=== PATIENT | female | born 1980 | race Caucasian/White ===

== ENCOUNTER 2018-11-28 23:04 | Emergency (ER) | payer OTHER ==
[~2018-11-28] VITALS: Ht 177.8 cm; Wt 81.6 kg
[2018-11-28 23:12] VITALS: BP 175/102
--- NOTE | 2018-11-28 23:15 | NUR ---
TO LOBBY A/W BED, AMBULATORY
[2018-11-28 23:47] LABS: BASOPHILS % (AUTO) 0.6 % (0.0-2.0); EOSINOPHILS # (AUTO) 0.4 K/uL (0-0.4); EOSINOPHILS % (AUTO) 4.4 % (0.0-4.0); HEMATOCRIT 41.8 % (36-48); HEMOGLOBIN 14.3 g/dL (12.0-16.0); LYMPHOCYTES # (AUTO) 2.8 K/uL (2.5-16.5); MEAN CORPUSCULAR HEMOGLOBIN 31 pg (27-31); MEAN CORPUSCULAR HGB CONC 34 g/dL (33-37); MEAN CORPUSCULAR VOLUME 91.5 fL (80-94); MONOCYTES # (AUTO) 0.4 K/uL (0.8-1.0); MONOCYTES % (AUTO) 5.3 % (1.7-9.3); NEUTROPHILS # (AUTO) 4.5 K/uL (1.8-7.7); NEUTROPHILS % (AUTO) 55.7 % (42.2-75.2); PLATELET COUNT (AUTO) 256 K/uL (140-450); RED BLOOD CELL COUNT(AUTO) 4.57 MIL/uL (4.20-5.40); RED CELL DISTRIBUTION WIDTH 14.1 % (11.6-13.7); WHITE BLOOD COUNT (AUTO) 8.1 K/uL (4.8-10.8)
--- NOTE | 2018-11-28 23:51 | NUR ---
PT TAKEN TO BED 3
--- NOTE | 2018-11-28 23:55 | NUR ---
PT BIB SELF C/O HIGH BLOOD PRESSURE. PT STATES SHE WAS AT [facility] AND TOOK HER BP AND IT WAS IN THE 190s. PT STATES SHE KNEW SHE HAS HIGH BLOOD PRESSURE BUT IS UNDIAGNOSED, AND HAS BEEN TAKING A FRIEND BP MEDICATION BUT HAS RAN OUT. PT STATES 0/10 PAIN AT THIS TIME, NO DISCOMFORT. PT IS ACTING APPROPRIATLY. PT IN BED; DECLINES GOWN; BED IN LOWER LOCKED POSITION. PENDING ER MD MELENDEZ. WILL CONTINUE TO [facility]. PMH: DENIES RX: DENIES
[2018-11-28 23:56] LABS: ANION GAP 7.4 (8-16); CARBON DIOXIDE 31.5 mmol/L (21-32); CREATININE 0.9 mg/dL (0.6-1.3); POTASSIUM 3.9 mmol/L (3.5-5.1)
[2018-11-29 00:01] LABS: ALBUMIN 3.5 g/dL (3.4-5.0); TOTAL BILIRUBIN 0.3 mg/dL (0.0-1.0)
--- NOTE | 2018-11-29 01:31 | NUR ---
Dr. Cleaning evaluating patient at bedside.
[2018-11-29] MEDS ORDERED: ENALAPRIL 10 MG TAB PO ONE (01:35)
--- NOTE | 2018-11-29 02:04 | NUR ---
Patient discharged with v/s stable. Patient acting appropriatly. Patient states 0/10 pain at this time. Written and verbal after care instructions given and explained. Patient verbalized understanding. Ambulatory with steady gait. All questions addressed prior to discharge. Advised to follow up with PMD.
[2018-11-29 02:14] VITALS: BP 143/93
== END 2018-11-29 02:04 | disposition home or self-care (01) ==
LOC: MED 23:04
DX: I10 Essential (primary) hypertension (principal); F17.200 Nicotine dependence, unspecified, uncomplicated
CPT/HCPCS: 36415; 80053; 84484; 85025; 99283

== ENCOUNTER 2019-05-01 22:45 | Emergency (ER) | payer OTHER ==
[~2019-05-01] VITALS: Ht 177.8 cm; Wt 81.6 kg
--- NOTE | 2019-05-01 22:49 | NUR ---
PT TAKEN TO BED 4
[2019-05-01 22:55] VITALS: BP 180/106
--- NOTE | 2019-05-01 22:55 | NUR ---
38/F PRESENTED TO ED C/O R FOOT PAIN. STATES SHE STEPPED ON A ROCK AT A FRIEND'S HOUSE. 01/17 SHARP X YESTERDAY. SLIGHT SWELLING AND REDNESS TO R FOOT. NO SIGNS OF ABRASIONS OR LACERATIONS. STATES SHE TOOK ALLEIVE FOR PAIN BUT NO RELIEF. PAST MED HX HTN. DENIES TAKING RX FOR HX. DENIES ALLERGIES. WILL CONTINUE TO MONITOR.
--- NOTE | 2019-05-01 23:16 | NUR ---
XRAY AT BEDSIDE
--- NOTE | 2019-05-02 00:18 | NUR ---
EMT BANDAGING RT FOOT AT THIS TIME. PT DOESN'T WANT CRUTCHES THAT WERE ORDERED. PT AMBULATORY WITH STEADY GAIT.
[2019-05-02 00:20] VITALS: BP 173/107
--- NOTE | 2019-05-02 00:20 | NUR ---
DPatient discharged with v/s stable. Written and verbal after care instructions given and explained. Patient alert, oriented and verbalized understanding of instructions. Ambulatory with steady gait. All questions addressed prior to discharge. ID band removed. Patient advised to follow up with PMD. Rx of MOTRIN given. Patient educated on indication of medication including possible reaction and side effects. Opportunity to ask questions provided and answered. PT REFUSED CRUTCHES ORDERED.
--- NOTE | 2019-05-02 00:21 | NUR ---
AMARA WRAP WAS PLACED ON PTS RIGHT ANKEL. PTS PMSC WNL
--- NOTE | 2019-05-02 00:22 | NUR ---
PT STATED THAT SHE DID NOT WANT THE CRUTCHES. SHE STATED THAT SHE WOUD NOT USE THEM.
== END 2019-05-02 00:20 | disposition home or self-care (01) ==
LOC: MED 22:45
DX: S93.401A Sprain of unspecified ligament of right ankle, initial encounter (principal); G62.9 Polyneuropathy, unspecified; I10 Essential (primary) hypertension; X58.XXXA Exposure to other specified factors, initial encounter; Y92.89 Other specified places as the place of occurrence of the external cause; Y93.89 Activity, other specified; Y99.8 Other external cause status
CPT/HCPCS: 73610; 73630; 99283; Q0092

== ENCOUNTER 2019-06-21 21:25 | Emergency (ER) | payer OTHER ==
[~2019-06-21] VITALS: Ht 177.8 cm; Wt 74.8 kg
[2019-06-21 21:40] VITALS: BP 187/109
--- NOTE | 2019-06-21 21:40 | NUR ---
TO BED # 07 AMBULATORY
--- NOTE | 2019-06-21 21:50 | NUR ---
L38 Y/O FEMALE C/O LEFT KNEE PAIN, 3-4 DAYS, RT FOOT SWELLING STARTED TODAY, NO TRAUMA NOR INJURY; PAIN IS A 9/10 SHARP ACUTE PAIN. RIGHT ANKLE SWELLING/EDEMA NOTED; LEFT KNEE PAIN UPON PALPATION NOTED. PATIENT STATED SHE TOOK NAPROXEN A FEW HOURS AGO WITH SOME RELIEF. A/OX4; FOLLOWS COMMANDS; BREATHING UNLABORED AND SYMMETRICAL. ERMD MADE AWARE OF STATUS. SIDE RAILSX1. PMH:HTN NKDA RX:DENIES
--- NOTE | 2019-06-21 22:02 | NUR ---
Dr. Taylor examining patient.
[2019-06-21] MEDS ORDERED: MORPHINE SULFATE 2 MG/ML SYR IM ONE (22:05)
--- NOTE | 2019-06-21 22:35 | NUR ---
X-Ray at bedside.
[2019-06-22] VITALS: BP 135/90
== END 2019-06-22 | disposition home or self-care (01) ==
LOC: MED 21:25
DX: S83.402A Sprain of unspecified collateral ligament of left knee, initial encounter (principal); S93.401A Sprain of unspecified ligament of right ankle, initial encounter; I10 Essential (primary) hypertension; X58.XXXA Exposure to other specified factors, initial encounter; Y93.01 Activity, walking, marching and hiking; Y92.009 Unspecified place in unspecified non-institutional (private) residence as the place of occurrence of the external cause; Y99.8 Other external cause status
CPT/HCPCS: 73562; 73630; 96372; 99283; J2270

== ENCOUNTER 2023-01-28 05:00 | Emergency (ER) | payer MEDICAID, OTHER ==
[~2023-01-28] VITALS: Ht 175.3 cm; Wt 111.1 kg
[2023-01-28 05:03] VITALS: BP 173/105
--- NOTE | 2023-01-28 05:08 | NUR ---
pt ambulatory to bed 03.
--- NOTE | 2023-01-28 05:17 | NUR ---
PATIENT RESTING IN BED, A/OX4, CHEST RISE AND FALL SYMMETRICAL, NO S/S OF DISTRESS, ON MONITOR.
--- NOTE | 2023-01-28 05:50 | NUR ---
Dr. Hilliard examining patient.
[2023-01-28] MEDS ORDERED: KETOROLAC 60 MG/2 ML VIAL IM ONE (05:55)
--- NOTE | 2023-01-28 06:06 | NUR ---
XRAY AT BEDSIDE
--- NOTE | 2023-01-28 06:15 | NUR ---
PATIENT RESTING IN BED, A/OX4, CHEST RISE AND FALL SYMMETRICAL, NO S/S OF DISTRESS, ON MONITOR.
--- NOTE | 2023-01-28 06:18 | NUR ---
Dr. Dixon examining patient.
[2023-01-28] MEDS ORDERED: NAPR-1704 PO (06:21)
[2023-01-28] MEDS ORDERED: TRAM-748 PO (06:21)
[2023-01-28 06:30] VITALS: BP 132/85
== END 2023-01-28 06:30 | disposition home or self-care (01) ==
LOC: MED 05:00
DX: M70.52 Other bursitis of knee, left knee (principal); I10 Essential (primary) hypertension; Z79.899 Other long term (current) drug therapy
CPT/HCPCS: 73562; 81025; 96372; 99283; J1885; Q0092

== ENCOUNTER 2023-03-29 21:52 | Emergency (ER) | payer MEDICAID ==
[~2023-03-29] VITALS: Ht 175.3 cm; Wt 107.0 kg
[~2023-03-29 21:52] MED LIST: NAPR-1704 PO; TRAM-748 PO
[2023-03-29 22:46] VITALS: BP 148/102; PULSE 113; RESP 16; TEMP 99
== END 2023-03-30 01:10 | disposition left against medical advice (07) ==
LOC: MED 21:52
DX: L02.31 Cutaneous abscess of buttock (principal); Z53.21 Procedure and treatment not carried out due to patient leaving prior to being seen by health care provider
CPT/HCPCS: 99281

== ENCOUNTER 2023-06-11 22:27 | Emergency (ER) | payer OTHER, MEDICAID ==
[~2023-06-11] VITALS: Ht 177.8 cm; Wt 92.5 kg
[2023-06-11 22:30] VITALS: BP 129/92; PULSE 79; RESP 16; TEMP 97.8; O2SAT 100
== END 2023-06-11 23:28 | disposition left against medical advice (07) ==
LOC: MED 22:27
DX: M25.561 Pain in right knee (principal); M25.461 Effusion, right knee; Z53.21 Procedure and treatment not carried out due to patient leaving prior to being seen by health care provider
CPT/HCPCS: 73562; 99281

== ENCOUNTER 2023-09-08 14:11 | Emergency (ER) | payer MEDICAID, OTHER ==
[~2023-09-08] VITALS: Ht 177.8 cm; Wt 97.5 kg
[2023-09-08 14:35] VITALS: BP 149/107; PULSE 112; RESP 20; TEMP 97.4; O2SAT 96
[2023-09-08] MEDS ORDERED: KETOROLAC 30 MG/ML VIAL IM ONE (14:45)
[2023-09-08] MEDS ORDERED: DEXAMETHASONE 10 MG/ML VIAL PO ONE (14:45)
[2023-09-08] MEDS ORDERED: PENICILLIN G BENZATHINE L-A 1.2 MU/2 ML SYR IM ONE ×2 (14:45→15:49)
[2023-09-08] MEDS ORDERED: IBUP-2213 PO (15:55)
[2023-09-08] MEDS ORDERED: BENZ-256 MM (15:55)
[2023-09-08 16:00] VITALS: PULSE 100
[2023-09-08 16:19] LABS: FLU A ANTIGEN negative (NEGATIVE); FLU B ANTIGEN NEGATIVE (NEGATIVE)
== END 2023-09-08 16:00 | disposition home or self-care (01) ==
LOC: MED 14:11
DX: J02.0 Streptococcal pharyngitis (principal); Z20.822 Contact with and (suspected) exposure to COVID-19; I10 Essential (primary) hypertension; Z79.899 Other long term (current) drug therapy
CPT/HCPCS: 87081; 87426; 87804; 96372; 99284; J0561; J1100; J1885

== ENCOUNTER 2023-09-11 23:01 | Emergency (ER) | payer OTHER ==
[~2023-09-11] VITALS: Ht 177.8 cm; Wt 97.5 kg
[~2023-09-11 23:01] MED LIST changes: +BENZ-256 MM; +IBUP-2213 PO
[2023-09-11 23:16] VITALS: BP 191/119; PULSE 111; RESP 16; TEMP 98.2; O2SAT 98
[2023-09-12] MEDS ORDERED: KETOROLAC 30 MG/ML VIAL IM ONE (00:55)
[2023-09-12] MEDS ORDERED: CLINDAMYCIN 150 MG CAP PO ONE (00:55)
[2023-09-12] MEDS ORDERED: ACET-10509 PO (00:57)
[2023-09-12] MEDS ORDERED: NAPR-54 PO (00:57)
[2023-09-12] MEDS ORDERED: CLIN300C2 PO (00:57)
[2023-09-12 01:08] VITALS: BP 136/70; PULSE 76; RESP 18; TEMP 97.3; O2SAT 99
== END 2023-09-12 01:08 | disposition home or self-care (01) ==
LOC: MED 23:01
DX: J36 Peritonsillar abscess (principal); I10 Essential (primary) hypertension; Z79.899 Other long term (current) drug therapy
CPT/HCPCS: 96372; 99283; J1885

== ENCOUNTER 2024-04-04 03:35 | Emergency (ER) | payer OTHER ==
[~2024-04-04] VITALS: Ht 175.3 cm; Wt 85.7 kg
[~2024-04-04 03:35] MED LIST changes: +ACET500T99 PO; +CLIN300C2 PO; +NAPR-337 PO
[2024-04-04 03:40] VITALS: BP 194/128; PULSE 102; RESP 18; TEMP 98.3; O2SAT 97
[2024-04-04 03:48] VITALS: BP 194/128; PULSE 102; RESP 18; TEMP 98.3; O2SAT 98
[2024-04-04] MEDS ORDERED: ERYT5OIN51 OP (04:04)
== END 2024-04-04 04:16 | disposition home or self-care (01) ==
LOC: MED 03:35
DX: H02.89 Other specified disorders of eyelid (principal); I10 Essential (primary) hypertension; Z79.1 Long term (current) use of non-steroidal anti-inflammatories (NSAID); Z79.2 Long term (current) use of antibiotics; Z79.899 Other long term (current) drug therapy
CPT/HCPCS: 99283

== ENCOUNTER 2024-05-13 23:30 | Emergency (ER) | payer OTHER ==
[~2024-05-13] VITALS: Ht 175.3 cm; Wt 108.9 kg
[~2024-05-13 23:30] MED LIST changes: +ERYT5OIN51 OP
[2024-05-13 23:41] VITALS: BP 176/115; PULSE 98; RESP 18; TEMP 98.3; O2SAT 100
[2024-05-14] MEDS: COLCHICINE 0.6 MG TAB PO ONE (00:05)
[2024-05-14] MEDS: KETOROLAC 30 MG/ML VIAL IVP ONE (00:06)
[2024-05-14] MEDS: MORPHINE SULFATE 4 MG/ML SYR IVP ONE (00:07)
[2024-05-14] MEDS: LABETALOL 20 MG/4 ML VIAL IVP ONE (00:17)
[2024-05-14] MEDS ORDERED: NAPR-337 PO (00:51)
[2024-05-14] MEDS ORDERED: COLC-30 PO (00:51)
[2024-05-14] MEDS ORDERED: AMLO5TAB PO (00:51)
[2024-05-14] MEDS ORDERED: LOSA-272 PO (00:51)
[2024-05-14] MEDS ORDERED: ALLO100T21 PO (00:51)
[2024-05-14 01:08] VITALS: BP 176/115; PULSE 98; RESP 18; TEMP 98.3; O2SAT 100
== END 2024-05-14 01:09 | disposition home or self-care (01) ==
LOC: MED 23:30
DX: M10.061 Idiopathic gout, right knee (principal); I10 Essential (primary) hypertension; Z79.899 Other long term (current) drug therapy
CPT/HCPCS: 96374; 96375; 99284; J1885; J2270; J3490

== ENCOUNTER 2024-05-26 16:47 | Emergency (ER) | payer OTHER ==
[~2024-05-26] VITALS: Ht 180.3 cm; Wt 112.7 kg
[~2024-05-26 16:47] MED LIST changes: +ALLO100T21 PO; +AMLO5TAB PO; +COLC-30 PO; +LOSA-272 PO
[2024-05-26 16:59] VITALS: BP 171/106; PULSE 111; RESP 18; TEMP 97.7; O2SAT 98
[2024-05-26] MEDS ORDERED: IBUP-2213 PO (17:46)
[2024-05-26] MEDS ORDERED: ACET-8905 PO (17:46)
[2024-05-26] MEDS: KETOROLAC 30 MG/ML VIAL IM ONE (18:01)
== END 2024-05-26 18:05 | disposition home or self-care (01) ==
LOC: MED 16:47
DX: M25.522 Pain in left elbow (principal); I10 Essential (primary) hypertension; Z79.899 Other long term (current) drug therapy
CPT/HCPCS: 96372; 99283; J1885